=== PATIENT | female | born 1995 | race Caucasian/White ===

== ENCOUNTER 2025-01-15 21:04 | Emergency (ER) | payer BC, SELFPAY ==
[2025-01-15 21:15] VITALS: BP 138/98
[2025-01-15 21:34] LABS: Hematocrit 36.6 % (37.0-47.0); Hemoglobin 12.2 g/dL (12.0-16.0); Mean Corp Hgb Conc. 33.3 g/dL (33.0-37.0); Mean Corpuscular Volume 86.1 fL (81.0-99.0); Nucleated Red Blood Cells % 0 %; Platelet Count 390 10^3/uL (130-400); Red Cell Dist. Width 14.2 % (11.5-14.5)
[2025-01-15 21:47] LABS: HCG, Serum Qualitative Screen Negative
[2025-01-15 21:51] LABS: ALT (SGPT) 46 U/L (0-35); AST (SGOT) 29 U/L (14-36); Albumin 4.3 g/dl (3.5-5.0); Alkaline Phosphatase 115 U/L (38-126); Blood Urea Nitrogen 14 mg/dl (7-17); Calcium 9.5 mg/dl (8.4-10.2); Carbon Dioxide 25 mmol/L (22-30); Chloride 103 mmol/L (98-107); Glucose 114 mg/dl (70-99); Potassium 3.9 mmol/L (3.5-5.1); Sodium 136 mmol/L (135-145); Total Protein 6.9 g/dl (6.3-8.2); eGFR > 60.00
[2025-01-15 22:01] LABS: Troponin I < 0.012 ng/ml
[2025-01-15 22:16] VITALS: BP 116/78
--- NOTE | 2025-01-15 22:58 | ED.GENMED ---
History of Present Illness
<Nisha Nuno MD, Resident - Last Filed: 01/16/25 20:51>
General
Chief Complaint: Chest Pain
Source: patient
Time Seen by Provider: 01/15/25 22:34
History of Present Illness
History of Present Illness:
29 y/o female 3 weeks post presents to the ER for SOB and chest pain. Today, she started to feel her heart start to race at the dentist. Afterwards, she noticed some SOB with exertion, some left sided chest pain and in her back as well. She
has also noticed some increased left sided calf pain. She had a due to failure of induction. She stayed at 1.5cm dilation for many hours and ultimately elected to do a . was uncomplicated. She did have some calf pain
after the and US revealed no DVT. The chest pain is 2-3/10 in severity, radiating to the back. She has not noticed any increase in leg swelling or erythema. The pain is not positional or reproducible. It does not seem to get worse with
exertion. She is wondering if the pain in her back and chest is more due to new positions while breast feeding and the SOB made her more aware of it. She also thinks she has walked a lot more in the last few days and states her calf pain feels
musculoskeletal.
She has been more anxious and tearful post-, however in the last week her mood has improved.
Past History
<Nisha Nuno MD, Resident - Last Filed: 01/16/25 20:51>
Past History
ED Past Medical History: Other (SKYLER post )
ED Past Surgical History: Other (, tonsillectomy )
Social History
Tobacco: Non-smoker
Alcohol: None
Drug: None
Personal:
Living: with family
Family History
Family History: Other (No history of clotting disorders in the family )
Review of Systems
<Nisha Nuno MD, Resident - Last Filed: 01/16/25 20:51>
Review of Systems
Allergies reviewed?: Yes
Constitutional: Reports no symptoms
EENT: Reports no symptoms
Respiratory: Reports trouble breathing
Cardiac: Reports chest pain
ABD/GI: Reports no symptoms
: Reports no symptoms
Musculoskeletal: Reports back pain
Skin: Reports no symptoms
Neurological: Reports no symptoms
Endocrine: Reports no symptoms
Hematologic/Lymphatic: Reports no symptoms
Psychiatric: Reports no symptoms
Phy Exam
<Nisha Nuno MD, Resident - Last Filed: 01/16/25 20:51>
Physical Exam
Physical Exam:
General: Well appearing, non-toxic
Head: atraumatic
Cardiac: Regular S1, S2, no murmurs, rubs or gallops
Respiratory: Clear breath sounds bilaterally, no wheezes or rales
Abdomen: Soft, nontender, nondistended, normal pulses in all 4 quadrants, wound healing well
Musculoskeletal: No tenderness with palpation of chest wall or back
Extremities: No peripheral edema, calf swelling or tenderness to palpation
General Physical Exam
General Presentation: well appearing
General age: appears stated age
General Skin: warm and dry
General Habitus: obese
General Mental: alert
General Hydration: appears well hydrated
Scores
<Nisha Nuno MD, Resident - Last Filed: 01/16/25 20:51>
Heart Score for Chest Pain Patients
STEMI patient?: No
History: Slightly or Non-Suspicious
ECG: Normal
Age: </= 45 years
Risk Factors: No Risk Factors
Troponin: </= Normal Limit
Heart Score for Chest Pain Patients: 0
Heart Score Risk: 2.5% MACE over next 6 weeks
Course
<Nisha Nuno MD, Resident - Last Filed: 01/16/25 20:51>
Orders/Labs/Results
Orders:
Orders
01/15/25 21:06
Electrocardiogram (*1) Urgent
Reason for Study: Chest Pain
EKG- Treatment ONCE
01/15/25 21:17
Cardiac Monitoring- Treatment ONCE
IV Insert/Care/Rem.- Treatment PRN
Test Result ONCE
O2 Therapy [RESP] Urgent
Titrate/Wean O2 to maintain O2 sat greater than (%): 90
Special Instructions: Maintain sats >/=90%
Pulse Ox/spot Check [RESP] Urgent
Quantity: 1
Special Instructions: ON ROOM AIR
01/15/25 21:27
Complete Blood Count/With Diff Urgent
Comprehensive Metabolic Panel Urgent
HCG, Serum Qualitative Screen Urgent
Comment: Notify provider if positive test present
Troponin I Urgent
01/15/25 23:28
DDimer [D-Dimer] Urgent
01/16/25 00:08
CT Chest PE Study Urgent
Comment:
Reason For Exam: left sided chest pain, recent c sec
Abnormal Lab Results
01/15/25 01/15/25
21:27 23:28
Hct 36.6 L %
(37.0-47.0)
D-Dimer 2.00 H ug/mlFEU
(0.00-0.50)
Glucose 114 H mg/dl
(70-99)
ALT 46 H U/L
(0-35)
01/15/25 21:27
01/15/25 21:27
Vital Signs
Initial and Last Documented VS:
Initial Vital Signs
Temp Pulse Resp BP Pulse Ox
98.0 F 109 20 138/98 99
01/15/25 21:15 01/15/25 21:15 01/15/25 21:15 01/15/25 21:15 01/15/25 21:15
Last Documented Vital Signs
Temp Pulse Resp BP Pulse Ox
98.0 F 86 26 114/79 99
01/15/25 21:15 01/16/25 01:45 01/16/25 01:45 01/16/25 01:39 01/16/25 01:45
taryn;Junaid Flowers DO - Last Filed: 01/15/25 23:25>
Orders/Labs/Results
Orders:
Orders
01/15/25 21:06
Electrocardiogram (*1) Urgent
Reason for Study: Chest Pain
EKG- Treatment ONCE
01/15/25 21:17
Cardiac Monitoring- Treatment ONCE
IV Insert/Care/Rem.- Treatment PRN
Test Result ONCE
O2 Therapy [RESP] Urgent
Titrate/Wean O2 to maintain O2 sat greater than (%): 90
Special Instructions: Maintain sats >/=90%
Pulse Ox/spot Check [RESP] Urgent
Quantity: 1
Special Instructions: ON ROOM AIR
01/15/25 21:27
Complete Blood Count/With Diff Urgent
Comprehensive Metabolic Panel Urgent
HCG, Serum Qualitative Screen Urgent
Comment: Notify provider if positive test present
Troponin I Urgent
01/15/25 23:28
DDimer [D-Dimer] Urgent
01/16/25 00:08
CT Chest PE Study Urgent
Comment:
Reason For Exam: left sided chest pain, recent c sec
Abnormal Lab Results
01/15/25 01/15/25
21:27 23:28
Hct 36.6 L %
(37.0-47.0)
D-Dimer 2.00 H ug/mlFEU
(0.00-0.50)
Glucose 114 H mg/dl
(70-99)
ALT 46 H U/L
(0-35)
01/15/25 21:27
01/15/25 21:27
Vital Signs
Initial and Last Documented VS:
Initial Vital Signs
Temp Pulse Resp BP Pulse Ox
98.0 F 109 20 138/98 99
01/15/25 21:15 01/15/25 21:15 01/15/25 21:15 01/15/25 21:15 01/15/25 21:15
Last Documented Vital Signs
Temp Pulse Resp BP Pulse Ox
98.0 F 86 26 114/79 99
01/15/25 21:15 01/16/25 01:45 01/16/25 01:45 01/16/25 01:39 01/16/25 01:45
<Nisha Nuno MD, Resident - Last Filed: 01/16/25 20:51>
MDM/Problems Addressed
Differential Diagnosis Includes:
PE, cardiomyopathy, pneumothorax, pneumonia, upper respiratory tract infection, costochondritis, musculoskeletal pain, atelectasis post , pericarditits, anxiety
MDM/Problems Addressed:
EKG nonischemic and troponin within normal limits making cardiac etiology less likely. Given patient is 3 weeks , recent surgery, will order D-dimer to evaluate for PE. Unlikely to be upper respiratory tract infection or pneumonia as
patient has been afebrile, without a cough, runny nose or sore throat. No calf tenderness with palpation, unilateral swelling or erythema noted making DVT unlikely.
D-dimer 2.0. Will proceed with getting a CT PE study. CT revealed no PE and small hiatal hernia. Chest pain likely a combination of musculoskeletal pain and deconditioning. May be GERD related as well. Will recommend follow up with insurance billing specialist if
the chest pain continues. Recommend OTC medications for GERD if feelings of acid reflux.
Chronic conditions affecting care: Other (Post- 3 weeks )
<Nisha Nuno MD, Resident - Last Filed: 01/16/25 20:51>
*Pulse Oximetry
SaO2: 99
Oxygen Mode of Delivery: Room air
Patient hypoxic: no
*EKG
Interpreted by ED Provider?: Yes
Interpretation: normal
Rate: normal
Rhythm: sinus
[place]: normal axis
Interval: normal interval
QRS Pattern: normal QRS
Ischemia: no ischemia
*Back Sewer Interpretation
Interpretation: normal
Rhythm: sinus
*Critical Care Note
Total Time (30-74mins, 75-104mins- exclusive of procedures): Not Applicable
Data Reviewed
Review of Other/Old Records Reveals: Labs (Cr 0.7 on 05/08/09) and Radiology Studies (5.8 cm simple cyst in right ovary transvaginal US 02/07/18)
Source: patient and family
ED Attending Note
<Nisha Nuno MD, Resident - Last Filed: 01/16/25 20:51>
-
Portions of this chart may have been created with voice recognition software.� Occasional wrong word or��sound alike� substitutions may have occurred due to the inherent limitations of voice recognition software.
<Junaid Flowers DO - Last Filed: 01/15/25 23:25>
ED Attending Note
Patient seen and examined by attending physician: Yes
I performed a history and physical exam of patient and discussed management with resident, I reviewed resident's note and agree with documented findings and plan of care.: Yes
ED Attending Note:
I agree with Nisha's note. 29-year-old female presents for evaluation of palpitations and mild shortness of breath. Patient is about 3 weeks . She had a . She had been doing well postoperatively until today. She noticed the
above symptoms. She does admit to have being much more active today. She is also breast-feeding and feels like she is breast-feeding in unusual positions which could give her musculoskeletal pain. She is not feeling short of breath while laying
in bed. No pain with deep inspiration.
General: Awake, Alert, Oriented X3. No acute distress.
Vitals: Patient was mildly tachycardic in triage but is not tachycardic at this time
Head: Atraumatic
Eyes: Pupils equal, EOMI
Throat: Airway intact, no exudates
Neck: Trachea midline
Lungs: Clear and equal b/l
Heart: Regular rate, no murmurs
Abd: Soft, Nontender, No pulsatile mass
Neuro: Nonfocal
Skin: Warm, dry, no rash
Extremities: pulses equal b/l, no edema
My suspicion for PE is relatively low. Will screen with a D-dimer.
Discharge Plan
Departure
Patient Disposition: Home (Routine Discharge)
Date of Disposition: 01/16/25
Time of Disposition: 01:49
Patient with high blood pressure during this ER visit?: Yes
Discharge Problem:
Chest pain not due to acute coronary syndrome, Chest pain, musculoskeletal
Instructions: Musculoskeletal Pain
Prescriptions:
No Action
No Meds [No Current Medications]
Referrals:
Yoli Jalloh DO [Family Provider, Family Practice]
Shari Wahl MD [Active, Cardiology]
Activity Restrictions/Additional Instructions:
Please consider following up with your insurance billing specialist if your heart palpitations and chest discomfort continues.
Interventions
Interventions:
*Risk Screen - Suicide Last Done: 01/15/25 21:15
*General Assessment Last Done: 01/15/25 22:14
*Neglect/Abuse Screening Last Done: 01/15/25 21:15
*ED- Fall Risk Assessment Last Done: 01/15/25 22:14
*ED COVID-19 Vaccine History Last Done: 01/15/25 22:14
*ED Influenza Vaccine History Last Done: 01/15/25 22:14
*Nursing Disposition Last Done: 01/16/25 01:51
ED- Cardiac Assessment Last Done: 01/15/25 22:14
Discharge Date and Time
Discharge Date/Time: 01/16/25 02:00
Print Language: NEPALI
[2025-01-15 23:00] VITALS: BP 115/80
[2025-01-15 23:53] LABS: D-Dimer 2.00 ug/mlFEU (0.00-0.50)
[2025-01-16] VITALS: BP 119/92
[2025-01-16 01:39] VITALS: BP 114/79
== END 2025-01-16 02:00 | disposition home or self-care (01) ==
LOC: EMR 21:04
PROVIDERS: Emergency Medicine; EMERGENCY PHYSICIAN Emergency Medicine; FAMILY PHYSICIAN Family Medicine
DX: R07.89 Other chest pain (principal)
CPT/HCPCS: 99284; 71275; 80053; 84484; 84703; 85025; 85379; 93005; Q9967